=== PATIENT | male | born 1995 | race Caucasian/White ===

== ENCOUNTER 2019-06-26 21:40 | Outpatient (CLI) | payer OTHER | END 2019-06-26 23:59 | disposition critical access hospital (66) | LOC: EMS 21:40 | PROVIDERS: ATTEND Surgery | DX: R51 Headache (principal); M25.562 Pain in left knee; M79.651 Pain in right thigh; V89.2XXA Person injured in unspecified motor-vehicle accident, traffic, initial encounter; Y92.414 Local residential or business street as the place of occurrence of the external cause | CPT/HCPCS: A0425; A0429 ==

== ENCOUNTER 2019-06-26 21:56 | Emergency (ER) | payer OTHER ==
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
[2019-06-26] MEDS ORDERED: NICOTINE 21 MG PATCH TOP STA (23:00)
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
[2019-06-26 23:49] VITALS: BP 122/78
== END 2019-06-26 23:54 | disposition home or self-care (01) ==
LOC: ED 21:56
DX: S09.90XA Unspecified injury of head, initial encounter (principal); S19.9XXA Unspecified injury of neck, initial encounter; V43.52XA Car driver injured in collision with other type car in traffic accident, initial encounter; Y93.89 Activity, other specified; Y92.410 Unspecified street and highway as the place of occurrence of the external cause
CPT/HCPCS: 70450; 72125; 99284; A9270